=== PATIENT | female | born 1970 | race Caucasian/White ===

== ENCOUNTER 2018-06-13 08:44 | Day surgery (SDC) | payer OTHER ==
[~2018-06-13 08:44] MED LIST: DEXAMETHASONE 4 MG/ML 5 ML INJ; METOCLOPRAMIDE 10 MG INJ; SEVOFLURANE 15 MIN
[2018-06-13 10:12] LABS: ADD MAN DIFF? NO
[2018-06-13 10:17] LABS: WHITE BLOOD COUNT 6.6 10^3/ul (4.8-10.8)
[2018-06-13 10:17] LABS: BASOPHILS % 0.5 % (0.0-2.0); EOSINOPHILS # 0.1 10^3/ul (0.0-0.5); EOSINOPHILS % 1.4 % (0.0-7.0); HEMATOCRIT 41.3 % (37.0-47.0); HEMOGLOBIN 13.7 g/dl (12.0-16.0); LYMPHOCYTES # 1.4 10^3/ul (0.8-2.9); LYMPHOCYTES % 21.7 % (15.0-51.0); MEAN CORPUSCULAR HEMOGLOBIN 30.4 pg (29.0-33.0); MEAN CORPUSCULAR HGB CONC 33.2 g/dl (32.0-37.0); MEAN CORPUSCULAR VOLUME 91.6 fl (82.0-101.0); MEAN PLATELET VOLUME 11.2 fl (7.4-10.4); MONOCYTE # 0.4 10^3/ul (0.3-0.9); MONOCYTES % 6.4 % (0.0-11.0); NEUTROPHIL # 4.6 10^3/ul (1.6-7.5); NEUTROPHILS % 69.8 % (39.0-77.0); PLATELET COUNT 259 10^3/UL (140-415); RED BLOOD COUNT 4.51 10^6/ul (4.20-5.40); RED CELL DISTRIBUTION WIDTH 13.6 % (11.5-14.5)
[2018-06-13 10:36] LABS: INR 0.86; PROTIME 11.8 Sec (11.9-14.9); PT RATIO 0.9
[2018-06-13 10:37] LABS: PARTIAL THROMBOPLASTIN TIME 26.9 Sec (23.0-35.0)
[2018-06-13 10:56] LABS: ALANINE AMINOTRANSFERASE 18 IU/L (13-69); ALBUMIN 4.5 g/dl (3.3-4.9); ALBUMIN/GLOBULIN RATIO 1.18; ALKALINE PHOSPHATASE 58 IU/L (42-121); ANION GAP 11 (5-13); ASPARTATE AMINO TRANSFERASE 32 IU/L (15-46); BILIRUBIN,INDIRECT 0.3 mg/dl (0-1.1); BILIRUBIN,TOTAL 0.3 mg/dl (0.2-1.3); BLOOD UREA NITROGEN 18 mg/dl (7-20); CALCIUM 9.1 mg/dl (8.4-10.2); CARBON DIOXIDE 27 mmol/L (21-31); CHLORIDE 101 mmol/L (97-110); CREATININE 0.61 mg/dl (0.44-1.00); Estimated GFR > 60 mL/min (>60); GLUCOSE 97 mg/dl (70-220); POTASSIUM 4.3 mmol/L (3.5-5.1); SODIUM 139 mmol/L (135-144); TOTAL PROTEIN 8.3 g/dl (6.1-8.1)
[2018-06-13] MEDS ORDERED: POLYMYXIN/BACITRACIN 1L IRRIG (13:09)
[2018-06-13] MEDS ORDERED: FENTAnyl 50 MCG/ML VIAL (13:55)
[2018-06-13] MEDS ORDERED: ONDANSETRON 4 MG INJ (13:56)
[2018-06-13] MEDS ORDERED: LIDOCAINE 2% (SDV) 5 ML INJ (13:56)
[2018-06-13] MEDS ORDERED: PROPOFOL 20 ML (13:56)
[2018-06-13] MEDS ORDERED: MIDAZOLAM 1 MG/ML 2 ML INJ (13:56)
[2018-06-13] MEDS ORDERED: MIDAZOLAM 1 MG/ML 2 ML INJ IV (14:00)
[2018-06-13] MEDS ORDERED: HYDROmorphONE 1 MG/5 ML IV SYRINGE IV ×2 (14:00)
[2018-06-13] MEDS ORDERED: MEPERIDINE 25 MG INJ IV (14:00)
[2018-06-13] MEDS ORDERED: LEVALBUTEROL (NEB) 1.25 MG/0.5 ML AMP HHN (14:00)
[2018-06-13] MEDS ORDERED: ONDANSETRON 4 MG INJ IV (14:00)
[2018-06-13] MEDS ORDERED: KETOROLAC 30 MG INJ IV (14:00)
[2018-06-13] MEDS ORDERED: LORAZEPAM 2 MG INJ IV (14:00)
[2018-06-13] MEDS ORDERED: FENTAnyl 50 MCG/ML VIAL IV ×2 (14:00)
[2018-06-13] MEDS ORDERED: DIPHENHYDRAMINE 50 MG INJ IV (14:00)
[2018-06-13] MEDS ORDERED: HYDROmorphONE 2 MG/ML SYG (14:48)
[2018-06-13] MEDS ORDERED: CEFAZOLIN 1 GM INJ (14:48)
[2018-06-13] MEDS: LIDOCAINE 1%/EPI (1:100,000) (MDV) 20 ML (14:55)
[2018-06-14] MEDS ORDERED: INFLUENZA VIRUS VACCINE 0.5 ML (DISPENSING) IM* (09:00)
== END 2018-06-13 17:20 | disposition home or self-care (01) ==
LOC: SDS 08:44
DX: N39.3 Stress incontinence (female) (male) (principal); E03.9 Hypothyroidism, unspecified
CPT/HCPCS: 51992; 80053; 85025; 85610; 85730